=== PATIENT | female | born 1925 | race Caucasian/White ===

== ENCOUNTER 2017-04-25 00:16 | Inpatient (IN) | payer MEDICARE, BC ==
[~2017-04-25] VITALS: Ht 165.1 cm; Wt 59.0 kg
[~2017-04-25 00:16] MED LIST: ASPIRIN EC81 M1 PO; ASPIRIN EC81 MG; BUMEX 1 MG TAB1 MG PO; CARAFATE1 G PO; CARDURA1 MG PO; CARDURA2 MG PO; CIPRO500 MG PO; COMBIVENT RESPIM4 GM; CORDARONE200 MG PO; DIOVAN160 MG PO; DUONEB 2.5-0.5 M3 ML UPD; FERROUS SULFAT325 MG PO; FIORICET TABLET1 TAB PO; KLOR-CON 1010 MEQ; LANOXIN125 MCG PO; LASIX40 MG PO; LEVAQUIN500 MG PO; LEXAPRO20 MG PO; MAG-OX 400 MG400 MG PO; MUCINEX600 MG PO; NITRO-DUR0.4 MG TD; NORVASC5 MG PO; PLAVIX75 MG PO; PRILOSEC10 MG PO; PROTONIX40 MG PO; SPIRIVA18 MCG INH; STERAPRED 5MG 65 M1 PO; TENORMIN100 MG PO; TESSALON PERLE100 MG PO; XARELTO20 MG PO
[2017-04-25 02:41] LABS: APPEARANCE CLEAR (CLEAR); BASOPHILS 0.2 % (0-2); BILIRUBIN NEGATIVE (NEGATIVE); COLOR YELLOW (YELLOW); EOSINOPHILS 3.4 % (0-7); GLUCOSE NEGATIVE (NEGATIVE); HEMATOCRIT 34.8 % (36.0-48.0); HEMOGLOBIN 11.7 g/dL (12-16); IMMATURE GRANULOCYTES 0.2 % (0-5); KETONE NEGATIVE (NEGATIVE); LEUKOCYTE ESTERASE NEGATIVE (NEGATIVE); LYMPHOCYTES 13.6 % (15-50); MCH 31.3 pg (26.0-34.0); MCHC 33.6 g/dL (31.0-37.0); MEAN PLATELET VOLUME 9.4 fL (7.4-10.4); MONOCYTES 11.4 % (2-11); NEUTROPHILS 71.2 % (40-80); NITRITE NEGATIVE (NEGATIVE); PLATELET COUNT 225 10x3/uL (130-400); PROTEIN TRACE mg/dL (NEGATIVE); RBC 3.74 10x6/uL (4.00-5.40); RDW 13.1 % (11.5-14.5); SPECIFIC GRAVITY 1.005 (1.005-1.020); UROBILINOGEN NORMAL (NORMAL); WBC 6.2 10x3/uL (4.8-10.8)
[2017-04-25 02:49] LABS: ALBUMIN 4.2 g/dL (3.4-5.0); ANION GAP 10.8 mmol/L (8-16); BILIRUBIN - TOTAL 0.52 mg/dL (0.2-1.3); CALCIUM 9.8 mg/dL (8.5-10.1); CARBON DIOXIDE 33.2 mmol/L (21.0-32.0); CREATININE - SERUM 1.4 mg/dL (0.6-1.3)
[2017-04-25 02:53] LABS: BACTERIA FEW /hpf (NONE SEEN); EPITHELIAL CELLS RARE /hpf (0-5); HYALINE CAST RARE /lpf (NONE SEEN); RED CELLS - URINE 0-5 /hpf (0-5); WHITE CELLS - URINE RARE /hpf (0-5)
[2017-04-25 04:00] VITALS: BP 145/58
[2017-04-25 04:07] VITALS: BP 145/58; BMI 21.6
[2017-04-25] MEDS ORDERED: FUROSEMIDE40 MG PO (04:27)
[2017-04-25] MEDS ORDERED: COMBIVENT RESPIM4 GM INH (04:32)
[2017-04-25] MEDS ORDERED: PROAIR HFA8.5 GM INH (04:32)
[2017-04-25] MEDS ORDERED: ZOLOFT100 MG PO (04:33)
[2017-04-25] MEDS ORDERED: HYDROCODON-ACE1 EAC7 PO (04:38)
[2017-04-25] MEDS ORDERED: ZOFRAN8 MG PO (04:43)
[2017-04-25] MEDS ORDERED: CHERATUSSIN AC473 ML PO (04:44)
[2017-04-25] MEDS ORDERED: CATAPRES0.2 MG PO (04:46)
[2017-04-25] MEDS ORDERED: NORVASC5 MG PO (04:47)
[2017-04-25] MEDS ORDERED: CORTISPORIN OIN15 GM TOPICAL (04:49)
[2017-04-25 08:31] VITALS: BP 107/37
--- NOTE | 2017-04-25 12:04 | NUR ---
1140 Patient was admitted thru the ER from [facility], an assisted living facility. PCP - DR Marcano Feeder Tender- DR Espino [facility] Emergency contact - Leonila DuvalNukavebfj-[phone] DR Scherer had stated he may consider discharge later today. CM called Kash Martinez and spoke with Meghana. She is concerned as patient is 89 years of age and in assisted living not a [place] [facility] w/ [facility] care. Kash Martinez also may have difficulty arranging transportation. Contact phone number for Kash Martinez - [phone]. Will advise primary nurse.
[2017-04-25 12:14] VITALS: BP 176/69
--- NOTE | 2017-04-25 12:27 | NUR ---
PATIENT IN RIGHT LATERAL POSITION RESTING WITH EYES CLOSED. RESPIRATIONS EVEN AND UNLABORED. SIDE RAILS UP X2. BED IN LOW POSITION. CALL LIGHT IN REACH.
[2017-04-25 16:28] VITALS: BP 96/54
--- NOTE | 2017-04-25 19:00 | NUR ---
REC'D LYING IN BED AWAKE AND ALERT WITH FAMILY AT BEDSIDE. RESP EVEN AND UNLABORED WITH NO DISTRESS NOTED. HAS O2 IN USE VIA NC AT 2 L/M. PT HAS NOTED BRUISING TO FOREHEAD AND BOTH EYES AND A LACERATION TO LEFT SIDE OF FOREHEAD. NO C/O NOTED OR VOICED. ASSESSMENT COMPLETED. C/L IN REACH AT BEDSIDE.
[2017-04-25 20:00] VITALS: BP 169/62
[2017-04-26] VITALS: BP 150/53
--- NOTE | 2017-04-26 02:00 | NUR ---
PT IN BED WITH NO DISTRESS. RESPIRATIONS EVEN AND UNLABORED. SIDE RAILS X 2. BED LOW. CALL LIGHT IN REACH.
[2017-04-26 04:00] VITALS: BP 115/64
--- NOTE | 2017-04-26 07:00 | NUR ---
PT REC'D FROM [facility]. RESTING IN BED WITH FAMILY AT BEDSIDE. AAOX4. RATING CURRENT PAIN IN ENTIRE BODY 05/24. WILL ADMINISTERED PAIN MEDICATION IF ABLE TO. BRUISING TO FOREHEAD AND BILAT EYES. C/O FEELING DIZZY WHEN MOVING "TOO MUCH." REPOSITIONED UP IN BED WITH EXTRA PILLOWS. PIV TO R HAND FREE OF REDNESS AND SWELLING. SCANT AMOUNT OF BLOOD AROUND CATHETER. BED LOW, CALL LIGHT IN REACH, DENIES NEEDS. CPOC.
[2017-04-26 08:20] VITALS: BP 157/65
[2017-04-26 08:26] LABS: APPEARANCE CLEAR (CLEAR); BILIRUBIN NEGATIVE (NEGATIVE); COLOR YELLOW (YELLOW); GLUCOSE NEGATIVE (NEGATIVE); KETONE NEGATIVE (NEGATIVE); LEUKOCYTE ESTERASE NEGATIVE (NEGATIVE); NITRITE NEGATIVE (NEGATIVE); PROTEIN NEGATIVE (NEGATIVE); SPECIFIC GRAVITY 1.005 (1.005-1.020); UROBILINOGEN NORMAL (NORMAL)
[2017-04-26 08:27] LABS: BASOPHILS 0.3 % (0-2); EOSINOPHILS 3.3 % (0-7); HEMATOCRIT 32.8 % (36.0-48.0); LYMPHOCYTES 19.2 % (15-50); MCH 31.4 pg (26.0-34.0); MCHC 33.5 g/dL (31.0-37.0); MCV 93.7 fL (80.0-100.0); MEAN PLATELET VOLUME 9.9 fL (7.4-10.4); MONOCYTES 13.3 % (2-11); NEUTROPHILS 63.9 % (40-80); PLATELET COUNT 189 10x3/uL (130-400); RDW 13.4 % (11.5-14.5)
[2017-04-26 08:29] LABS: WBC 3.4 10x3/uL (4.8-10.8)
[2017-04-26 08:58] LABS: ALBUMIN 3.5 g/dL (3.4-5.0); ANION GAP 9.5 mmol/L (8-16); BILIRUBIN - TOTAL 0.52 mg/dL (0.2-1.3); CALCIUM 9.4 mg/dL (8.5-10.1); CARBON DIOXIDE 32.5 mmol/L (21.0-32.0); CREATININE - SERUM 1.1 mg/dL (0.6-1.3); PROTEIN - SERUM 6.6 g/dL (6.4-8.2)
--- NOTE | 2017-04-26 09:33 | NUR ---
MORNING MEDS PASSED AT THIS TIME. PRN NORCO ADMINISTERED PER PT COMPLAINTS OF 7/10 GENERALIZED PAIN. WILL REASSESS. ASSISTED ONTO BED HOLDEN. VOIDED SMALL AMOUNT OF CLEAR YELLOW URINE. SAMPLE COLLECTED USING CLEAN BED HOLDEN AND SENT TO LAB. BED LOW, CALL LIGHT IN REACH, DENIES NEEDS. CPOC.
--- NOTE | 2017-04-26 11:42 | NUR ---
AWAKE AND ALERT. ORIENTED X3. NO C/O AT THIS TIME. DENIES NEEDS. BRUISING NOTED TO FACE AND ABRASION TO FOREHEAD NOTED.
[2017-04-26 12:04] VITALS: BP 143/52
[2017-04-26 13:43] VITALS: Ht 165.1 cm; Wt 59.0 kg
--- NOTE | 2017-04-26 15:13 | NUR ---
SCHEDULED MEDS AND PRN NORCO ADMINISTERED PER JAN. PT RESTING IN BED WITH EYES CLOSED. TEGADERM TO PIV ON R HAND CHANGED DUE TO BLOOD AROUND SITE. BED LOW, CALL LIGHT IN REACH, DENIES NEEDS. CPOC.
[2017-04-26 15:57] VITALS: BP 132/51
--- NOTE | 2017-04-26 19:40 | NUR ---
RECIEVED SHIFT REPORT. PT IS LYING IN BED. ALERT AND ORIENTED AND ABLE TO VERBALIZE NEEDS. IV IS PATENT AND SALINE LOC AT THIS TIME. PT IS AMBULATORY WITH ASSISTANCE. O2 @ 3 PER NASAL CANNULA. PT STATES PAIN IS 5/10. NO NEEDS ARE VERBALIZED AT THIS TIME. WILL CONTINUE TO MONITOR. SIDE RAILS ARE UP X 2. BED IS IN LOWEST POSITION. BED ALARM IS ON FOR SAFETY. CALL LIGHT IS WITHIN REACH.
[2017-04-26 20:03] VITALS: BP 138/51
--- NOTE | 2017-04-26 21:51 | NUR ---
SHIFT ASSESSMENT COMPLETED. NIGHT MEDS GIVEN WITH NO PROBLEMS. SCHEDULED CATAPRES HELD AT THIS TIME DUE TO B/P=138/51. NO NEEDS ARE VOICED. WILL MONITOR. SIDE RAILS X 2. BED LOW. BED ALARM ON. CALL LIGHT IN REACH.
[2017-04-27] VITALS: BP 151/47
[2017-04-27 04:00] VITALS: BP 151/68
[2017-04-27 08:25] VITALS: BP 156/65
--- NOTE | 2017-04-27 08:45 | NUR ---
ASSESSMENT COMPLETE. SL TO R HAND. FURNITURE PACKER SHOWING SB WITH PACS 57 PER TECH. O2 3L NC IN USE. BRUISING NOTED TO BILAT EYES AND FOREHEAD. BED ALARM IN USE. DISORIENTED TO TIME AND SITUATION.
--- NOTE | 2017-04-27 13:32 | NUR ---
CM REASSESSMENT NOTE: PATIENT IS DISCHARGING TO IP REHAB AND FAMILY AWARE.
[2017-04-27 15:07] VITALS: BP 142/68
--- NOTE | 2017-04-27 16:25 | NUR ---
REPORT CALLED TO ANJEL CHENG RN ON REHAB.
--- NOTE | 2017-04-27 16:47 | NUR ---
SL D/C WITH CATHETER INTACT.
--- NOTE | 2017-04-27 17:30 | NUR ---
SL REMOVED. CATHETER TIP INTACT. KINDERGARTEN ASSISTANT REMOVED AND SENT BACK TO MONITOR STATION. DC'D TO REHAB VIA WITH BELONGING AND PORTABLE OXYGEN.
== END 2017-04-27 17:30 | DRG 89 ==
LOC: D.ER 00:16 → OBSVTIME 02:19 → D.MS 02:19
PROVIDERS: Emergency Medicine; ADMIT Family Medicine
PROC: 0HQ1XZZ Repair Face Skin, External Approach (ICD-10-PCS; principal; 2017-04-25)
DX: S06.0X0A Concussion without loss of consciousness, initial encounter (principal); E87.1 Hypo-osmolality and hyponatremia; W19.XXXA Unspecified fall, initial encounter; S01.81XA Laceration without foreign body of other part of head, initial encounter; I10 Essential (primary) hypertension; I48.91 Unspecified atrial fibrillation; F41.9 Anxiety disorder, unspecified; I12.9 Hypertensive chronic kidney disease with stage 1 through stage 4 chronic kidney disease, or unspecified chronic kidney disease; N18.3 Chronic kidney disease, stage 3 (moderate); D64.9 Anemia, unspecified; E87.6 Hypokalemia; J44.9 Chronic obstructive pulmonary disease, unspecified; Z86.73 Personal history of transient ischemic attack (TIA), and cerebral infarction without residual deficits

== ENCOUNTER 2017-04-27 16:44 | Inpatient (IN) | payer MEDICARE, BC ==
[~2017-04-27] VITALS: Ht 165.1 cm; Wt 53.5 kg
[~2017-04-27 16:44] MED LIST changes: +CATAPRES0.2 MG PO; +CHERATUSSIN AC473 ML PO; +COMBIVENT RESPIM4 GM INH; +CORTISPORIN OIN15 GM TOPICAL; +FUROSEMIDE40 MG PO; +HYDROCODON-ACE1 EAC7 PO; +PROAIR HFA8.5 GM INH; +ZOFRAN8 MG PO; +ZOLOFT100 MG PO
--- NOTE | 2017-04-27 17:50 | NUR ---
RECIEVED ON FLOOR TO ROOM 1113B/WC.ORIENTED TO ROOM AND SURROUNDINGS.CL IN REACH.FAMILY AT BEDSIDE.
--- NOTE | 2017-04-27 19:29 | NUR ---
PT RESTING IN BED WITH EYES OPEN. ALERT AND ORIENTED X 3. PT DENIES ANY ACUTE PAIN OR DISCOMFORT. VSS. O2 IS ON @ 2LPM PER NC. NO SOB NOTED. PT IS EATING A BURGER FROM [employer] AT THIS TIME. SR'S ARE UP X 3 IN BED. CALL LIGHT AND BEDSIDE TABLE ARE WITHIN EASY REACH.
--- NOTE | 2017-04-27 22:07 | NUR ---
PT RESTING IN BED WITH EYES OPEN. ASSISTED TO THE BATHROOM WITH MIN ASSIST FOR BALANCE ONLY. PT VOIDED WITHOUT DIFFICULTY. ASSISTED BACK TO BED.
[2017-04-27 22:25] VITALS: BP 155/61
--- NOTE | 2017-04-27 23:10 | NUR ---
PT. IN BED WITH HOB UP FOR COMFORT. EYES CLOSED AND RESP. EVEN BUT AWAKENS EASILY UPON ENTERING ROOM. PT. SEEMS TO BE MORE CONCERNED WITH HER ROOMMATE THEN ANYTHING ELSE. REASSURED PT. THAT HER ROOMMATE WAS OK. PT. DENIES ANY NEEDS AND HAS HER CALL LIGHT LIGHT WITHIN REACH.
--- NOTE | 2017-04-27 23:25 | NUR ---
PT RESTING IN BED WITH EYES OPEN. VERY RESTLESS. RINGING CALL LIGHT FREQUENTLY FOR VARIOUS REASONS. ENCOURAGED TO TRY AND GET SOME SLEEP.
--- NOTE | 2017-04-28 02:07 | NUR ---
PT ASSISTED TO THE BATHROOM WITH MIN ASSIST. VOIDED WITHOUT DIFFICULTY.
[2017-04-28 05:25] VITALS: BP 155/61; BMI 19.7
--- NOTE | 2017-04-28 05:56 | NUR ---
PT ASSISTED UP TO THE BATHROOM WITH MIN ASSIST. PT NOT DRESSED, DUE TO OT EVAL DUE THIS AM.
[2017-04-28 06:58] LABS: ALBUMIN 3.5 g/dL (3.4-5.0); ANION GAP 12.9 mmol/L (8-16); BILIRUBIN - TOTAL 0.58 mg/dL (0.2-1.3); CALCIUM 9.3 mg/dL (8.5-10.1); CARBON DIOXIDE 28.2 mmol/L (21.0-32.0); POTASSIUM - SERUM 4.1 mmol/L (3.5-5.1)
--- NOTE | 2017-04-28 07:30 | NUR ---
LYING IN BED WITH CL IN REACH.
--- NOTE | 2017-04-28 08:26 | NUR ---
PATIENT SITTING UP IN BED TO EAT BREAKFAST. ALERT/ORIENT TO SLEF AND PLACE ONLY. CALL LIGHT WITHIN REACH. BED ALARM ON. VOICES NO NEEDS AT THIS TIME
--- NOTE | 2017-04-28 08:45 | NUR ---
PRN NORCO GIVEN FOR HEAD AND NECK PAIN.
[2017-04-28 09:04] VITALS: BP 191/80
--- NOTE | 2017-04-28 10:19 | NUR ---
PRN COMBIVENT INHALER GIVEN FOR SOB. PATIENT BEING MOVED TO 1111B DUE TO PATIENT WANTING THE ROOM COLD AND ROOM MATE WANTING THE ROOM WARM. PATIENT TALKS CONTINULY AND KEPT ROOM MATE UP LAST NIGHT.
[2017-04-28 10:22] VITALS: Ht 165.1 cm; Wt 53.5 kg
--- NOTE | 2017-04-28 14:07 | NUR ---
PATIENTS DAUGHTERS IN. GAVE THIS NURSE A MED LIST FROM [facility]. THIS NURSE ASKED DAUGHTER ABOUT MICROBID FOR UTI. DAUGHTER STATED SHE HAD HAD ALL SEVEN DOSES OF MICROBID AND THAT THE [facility] HAD RUN ANOTHER URINE CULTURE AND PATIENT WAS FREE OF UTI.
--- NOTE | 2017-04-28 17:39 | NUR ---
DR. MACK INTO SEE PATIENT.
--- NOTE | 2017-04-28 19:45 | NUR ---
SITTING UP ON BEDSIDE, RAMBLING LOUDLY TO ROOMMATE AND CABINET MOUNTER. PATIENT VERY DISORIENTED AND CONFUSED. ALTERNATELY ADMITS SHE IS IN THE HOSPITAL, AND THEN WILL ASK WHY STAFF MEMBERS ARE IN HER HOUSE. VERY ATTENTION SEEKING AND WILL NOT ALLOW CABINET MOUNTER TO FINISH WITH HER. WANTS CABINET MOUNTER TO STAY AHD CHAT. EXPLAINED THAT CABINET MOUNTER HAS OTHER TASKS TO ACCOMPLISH AND CANNOT STOP TO TALK (CABINET MOUNTER HS BEEN TRYING TO DISENGAGE FROM PATIENT AND STATES THIS PATIENT HAS BEEN DISRUPTIVE AND ATTENTION-SEEKING ALL AFTERNOON).
[2017-04-28 20:15] VITALS: BP 141/55
--- NOTE | 2017-04-28 20:30 | NUR ---
PATIENT IN BR WITH FUR GRADER ASSIST. KEEPS CALLING FUR GRADER BACK TO TALK WITH HER WHILE ON COMMODE, AND ADMITS TO NOT BEING FINISHED WITH TOILETING. THIS HAS DRAGGED ON FOR 15 MINUTES.
--- NOTE | 2017-04-28 22:30 | NUR ---
PATIENT CONTINUES TO BE DISRUPTIVE TO HER ROOMMATE WITH CONSTANT TALKING AND LACK OF COOPERATION WITH STAFF. WAS ABLE TO COMPLETE ASSESSMENT AND HS MEDS. BUT NOT WITHOUT RESISTANCE. PATIENT HAS DEMONSTRATED SLAPPING STAFF, MYSELF INCLUDED ON THE LEGS AND ARMS TO EMPHASIZE HER COMMENTS. TOLD HER THAT THIS ACTION WILL NOT BE UNDERSTOOD OR APPRECIATED BY OTHER STAFF MEMBERS DUE TO THE SHARPNESS AND CONTEXT IN WHICH SHE OFTEN DOES IT. TOLD HER IT IS NOT APPROPRIATE AND SHE WILL HAVE TO REFRAIN FROM DONG IT.
--- NOTE | 2017-04-29 00:30 | NUR ---
WHEN I SASHA DRAPE TO PROVIDE PRIVACY FOR PATIENT'S ROOMMATE FOR ASSESMENT. PATIENT BEGAN TO THREATEN ME IF I DID NOT DRAW BACK TO DRAPE. TOLD PATIENT I WAS DOING IT FOR HER ROOMMATES PRIVACY THAT IT WOULD ONLY LAST 30 OR SO MINUTES, AND WHE SHE PERSEVERATED I TOLD HER THAT FRANKLY HER ROOMMATE'S BUSINESS WAS PRIVATE AND NOT OF HER CONCERN. ROOMMATE IS ROLLING HER EYES AND INTIMATES SHE IS A BIT UPSET WITH MRS. HASSAN'S BEHAVIOR TONIGHT. TOLD HER WE WILL HAVE THE PROBLEM REMEDIED TOMORROW AT THE LATEST. AFTER ASSESSMENT MRS. JONES SAID SHE WOULD ALLOW DRAPE TO BE OPEN. MEANWHILE MRS. HASSAN HAD BEEN TALKING ON PHONE, OSTENSIBLY TO FAMILY, OR SO I THOUGHT UNTIL I HER THE "[id number]" ALERT TONE AND REALIZED SHE WAS TALKING TO NO ONE REAL. TOLD ME TO, "GET OUT OF HERE [ROOM 1111], OR YOU'LL BE IN TROUBLE!" REMINDED HER SHE IS IN THE HOSPITAL AND DOES NOT DICTATE NURSING ROUTINE.
--- NOTE | 2017-04-29 01:20 | NUR ---
ASSISTED PATIENT UP TO BR. ON RETURN SHE WAS VERY APOLOGETIC FOR HER EARLIER BEHAVIOR. SEEMS SHE IS SLIGHTLY IMPROVED, COGNITIVELY SPEAKING. WE'LL SEE.
--- NOTE | 2017-04-29 02:40 | NUR ---
RESTING QUIETLY ON RIGHT SIDE. NO DISTRESS NOTED.
--- NOTE | 2017-04-29 04:50 | NUR ---
REMAINS ON RIGHT SIDE, RESTING QUIETLY. NO CURRENT DISTRESS NOTED.
--- NOTE | 2017-04-29 06:55 | NUR ---
AWOKE PATIENT AND GAVE HER SCHEDULED PROTONIX 40MG PO. PATIENT SLEEPY. MORE COOPERATIVE THAN LAST NIGHT.
--- NOTE | 2017-04-29 07:15 | NUR ---
Pt lying in bed eyes closed resting
[2017-04-29 08:21] VITALS: BP 153/64
--- NOTE | 2017-04-29 09:40 | NUR ---
Pt alert and oriented x4 pleasant affect sitting up in bed visting friends
--- NOTE | 2017-04-29 11:30 | NUR ---
PT SITTING UP IN BED VISITING WITH FAMILY DENIES ANY PAIN
--- NOTE | 2017-04-29 12:14 | NUR ---
PT FAMILY REQUESTED LUNESTA 3MG QHS (CURRENT MED) DR. MACK AUTHORIZED AND VERIFIED PHONE ORDER.
--- NOTE | 2017-04-29 14:00 | NUR ---
PT LYING IN BED RIGHT SIDE IN POSITION C/O LOWER BACK PAIN AND NAUSEA 8/10 WILL GIVE PAIN MEDS.
--- NOTE | 2017-04-29 15:48 | NUR ---
PT IN THERAPY
--- NOTE | 2017-04-29 16:34 | RHP ---
PATIENT: REBEL HASSAN MEDICAL RECORD: [id number] ACCOUNT: [id number] LOCATION:[facility] Ana1111 : [birth year] ADMISSION DATE: 04/27/17 REHABILITATION HISTORY AND PHYSICAL EXAMINATION POST ADMISSION PHYSICIAN EXAMINATION Rehabilitation History and Physical Examination and Post-admission Physical Examination DATE OF ADMISSION: 04/27/2017 ADMITTING DIAGNOSIS: Closed head injury with concussion. HISTORY OF PRESENT ILLNESS: An 89-year-old white female patient, admitted to the hospital after closed head injury with concussion. She is currently in inpatient rehab for further care. The patient was living at [facility] in an apartment in assisted living where she was moderate assist with her mobility and independent of her ADLs. She presented to the ED after having a fall and hitting her head, found to have a closed head injury with suspected concussion with vomiting. CT of her head showed a left frontal scalp hematoma, chronic mild small vessel ischemic changes in the periventricular white matter, but no subdural hematoma. She currently is having increased amount of dizziness and only able to ambulate a short distance with physical therapy assistance and having dizziness with loss of balance, currently in inpatient rehab for further care. The patient plans to return to her apartment at [facility] if her prior level of functioning are better. COMORBIDITIES: Falls, hypoxia, dyspnea, shortness of breath, hyper and hypotension, fluid overload, impaired skin integrity, risk for aspiration, anemia, history of stroke with weakness, dizziness, hard of hearing with hearing aids, hypertension, atrial fibrillation, angina, claudication, COPD, depression and anxiety. PAST MEDICAL HISTORY: CVA, generalized weakness, vertigo, detached retina of left eye, hypertension, atrial fibrillation, angina, claudication, COPD, oxygen dependent, depression and anxiety. PAST SURGICAL HISTORY: Facial reconstruction. ALLERGIES: DECONGESTANTS. MEDICATIONS: Zoloft 100 mg a day, nitroglycerin 0.4 mg sublingual as needed, Lasix 40 mg a day, iron 325 mg a day, Lexapro 20 mg a day, Protonix 40 mg a day, valsartan 160 mg b.i.d., potassium 10 mEq b.i.d., magnesium oxide 400 mg b.i.d., amiodarone 200 b.i.d., Zofran 8 mg p.r.n., albuterol updrafts as needed, Conrad as needed, clonidine as needed and MiraLax as needed. SOCIAL HISTORY AND HABITS: Nonsmoker and nondrinker. FAMILY HISTORY: Parent with cardiovascular disease and cancer. Has a child with a neurological disorder and cardiovascular disease. REVIEW OF SYSTEMS: GENERAL: Positive for weakness. CENTRAL NERVOUS SYSTEM: Positive for headache and dizziness. HISTORY AND PHYSICAL [id number] REBEL HASSAN CARDIOVASCULAR: No chest pain or palpitations. INFECTIOUS DISEASE: No fever or chills. GASTROINTESTINAL: Occasional nausea and vomiting. No abdominal pain or diarrhea. GENITOURINARY: No dysuria. HEME: No GI bleeding. SKIN: Does have some bruising and lacerations to her head. PULMONARY: No cough or shortness of breath. MUSCULOSKELETAL: Positive for arthritis. LABORATORY DATA: Sodium 132, potassium 4.1, BUN 10 and creatinine 1.0. AST 44 and ALT 48. ASSESSMENT: An 89-year-old white female patient admitted to rehab with a working diagnosis of closed head injury with concussion. The patient has potential to make improvement and we have instituted the following multiple disciplinary therapies including, but not limited to physical, occupational, respiratory, speech, nutritional services, prosthetics and orthotics. Given her complex condition and risk for more complications, rehabilitation services cannot be provided at a lower level of care such as a nursing home facility. PLAN: 1. Admit to [facility] rehab for intensive inpatient therapy to include the following disciplines: A. Physical therapy to improve gait, all transfer skills and bed mobility to modified independent level. B. Occupational therapy to improve activities of daily living to a modified independent level. C. Case management to assist with discharge planning and placement options. D. Nutrition to assist with nutritional needs. E. Rehabilitation nursing to assist in monitoring the patient's underlying medical conditions and assist with any type of bowel or bladder management. 2. The patient's current medication and medical care during care will be continued. 3. The patient will be placed on standard fall precautions. We will monitor her neuro status and follow up with care team next week. TRANSINT:[id number] Voice Confirmation ID: [id number] DOCUMENT ID: [id number] BREANNA notes whether there has been none or any medical/functional change since admission: - No Change. BREANNA attests patient continues to be appropriate for IRF: - Continues to be appropriate for IRF. HISTORY AND PHYSICAL [id number] REBEL HASSANKIMBERLY YAP at 1634 CC: [id number] DICTATION DATE: 04/28/171758 ELECTRON GUN ASSEMBLER: 04/28/17 2251 ADM IN [place] [id number] [place] [id number]
--- NOTE | 2017-04-29 17:22 | NUR ---
PT SITTING UP IN BED WATCHING TV, DENIES ANY PAIN OR NAUSEA
[2017-04-29 19:00] VITALS: BP 95/53
--- NOTE | 2017-04-29 19:00 | NUR ---
IN BED, AWAKE. DENIES NEEDS.
--- NOTE | 2017-04-29 21:25 | NUR ---
ASSISTED PATIENT UP TO BR TO URINATE. CHANGED HER BRIEF, BUT ONLY SAW 2 SMALL URINE SPOTS ABOUT 1" IN DIAMETER. PATIENT SEEMED TO THINK HER BRIEF WAS SATURATED. ASSURED HER THAT IT HAD NOT BEEN. ON RETURN TO BED, ASSESSMENT AND HS MEDS WERE COMPLETED. HELD SCHEDULED DIOVAN 160MG FOR LOW BP OF 96/53. PATIENT WAS STARTED TONIGHT ON NIGHTLY DOSE OF LUNESTA 3MG PER NEW ORDER. SR UP X3. BHAVIN ALARM IS ARMED. WATER AND CALL LIGHT ARE IN REACH.
--- NOTE | 2017-04-29 22:25 | NUR ---
RESTING QUIETLY, EYES CLOSED.
--- NOTE | 2017-04-30 02:00 | NUR ---
RESTING IN BED, EYES CLOSED. APPEARS COMFORTABLE.
--- NOTE | 2017-04-30 04:45 | NUR ---
IN BED, EYES CLOSED. RESPIRING QUIETLY.
--- NOTE | 2017-04-30 06:45 | NUR ---
IN BED, RESTING QUIETLY. WAS ASSISTED UP EARLY IN THE HOUR TO BR COMMODE AND BACK TO BED.
--- NOTE | 2017-04-30 07:03 | NUR ---
RESTING QUIETLY IN BED. EYES CLOSED. CALL LIGHT IN REACH
[2017-04-30 08:00] VITALS: BP 141/44
--- NOTE | 2017-04-30 09:18 | NUR ---
PATIENT IS PLEASANTLY CONFUSED. BHAVIN BED ALARM ON. CALL LIGHT WITHIN REACH. VOICES NO NEEDS AT THIS TIME. OXYGEN ON AT 3.5L PER N/C PO 100%. REDNESS FROM OLD BRUSING AROUND EYES. LEFT FOREHEAD HAS A SMALL INCISION OVER IT WITH TWO SURGICAL TRAN. PATIENT IS VERY [place].
--- NOTE | 2017-04-30 10:30 | NUR ---
PATIENT LYING IN BED. C/O NAUSEA. PRN ZOFRAN GIVEN
--- NOTE | 2017-04-30 13:49 | NUR ---
PATIENT REFUSED SHOWER FROM THIS NURSE AND OCCUPATIONAL THERAPIST. EXPLAINED TO PATIENT SHOWER SCHEDULE
--- NOTE | 2017-04-30 15:25 | NUR ---
PATIENT RESTING IN BED AFTER THERAPY. CALL LIGHT WITHIN REACH.
--- NOTE | 2017-04-30 16:14 | NUR ---
PATIENT ADMITTES TO REHAB FROM ACUTE FLOOR. DR. YATES IS PCP AND DR. ROBLERO IS HER ORDER RUNNER. SHE LIVES AT [facility]. PLANS ARE FOR PATIENT TO RETURN THERE AT TIME OF DISCHARGE. WILL CONTINUE TO FOLLOW WITH PATIENT
--- NOTE | 2017-04-30 18:42 | NUR ---
PRN ZOFRAN GIVEN FOR NAUSEA
--- NOTE | 2017-04-30 19:00 | NUR ---
IN BED AWAKE. DENIES NEEDS.
[2017-04-30 20:16] VITALS: BP 141/53
--- NOTE | 2017-04-30 21:25 | NUR ---
ASSISTED PATIENT UP TO BR AND THEN BACK TO BED. ON RETURN, ASSESSMENT AND HS MEDS WERE COMPLETED. PATIENT DENIES CURRENT NEEDS.
--- NOTE | 2017-04-30 22:05 | NUR ---
REMAINS AWAKE, IN BED, READING THE PAPER. REMINDED HER SHE ALREADY TOOK HER LUNESTA FOR SLEEP AND SUGGESTED SHE TRY TO DO JUST THAT AND NOT WASTE THE INTENDED EFFECT OF HER SLEEPING MEDICATION.
--- NOTE | 2017-05-01 00:10 | NUR ---
ASSISTED PATIENT UP TO BR TO URINATE. CHANGED HER BRIEF AND SUPPLEMENTAL SANTOS PAD DUE TO INCONTINENCE. CHANGED PJ BOTTOMS DUE TO ODOR OF DRY URINE. PATIENT REFUSED INITIALLY, BUT FINALLY AGREED TO CHANGE, BUT WOULD NOT CHANGE HER PJ TOP.
--- NOTE | 2017-05-01 02:00 | NUR ---
RESTING IN BED ON RIGHT SIDE. NO APPARENT DISCOMFORT.
--- NOTE | 2017-05-01 06:15 | NUR ---
IN BED, AWAKE. CURRENTLY RECEIVING MDI TREATMENT BY R/T.
--- NOTE | 2017-05-01 08:00 | NUR ---
SITTING UP IN BED EATING BREAKFAST.DENIES NEEDS.CL IN REACH.
[2017-05-01 08:31] LABS: BASOPHILS 0.3 % (0-2); EOSINOPHILS 4.4 % (0-7); HEMATOCRIT 33.2 % (36.0-48.0); IMMATURE GRANULOCYTES 0.3 % (0-5); LYMPHOCYTES 25.4 % (15-50); MCH 31.3 pg (26.0-34.0); MCHC 33.1 g/dL (31.0-37.0); MCV 94.3 fL (80.0-100.0); MEAN PLATELET VOLUME 9.6 fL (7.4-10.4); MONOCYTES 13.4 % (2-11); NEUTROPHILS 56.2 % (40-80); PLATELET COUNT 213 10x3/uL (130-400); RBC 3.52 10x6/uL (4.00-5.40); RDW 13.2 % (11.5-14.5); WBC 3.7 10x3/uL (4.8-10.8)
[2017-05-01 08:39] LABS: ANION GAP 10.4 mmol/L (8-16); CALCIUM 9.4 mg/dL (8.5-10.1); CARBON DIOXIDE 32.2 mmol/L (21.0-32.0); CREATININE - SERUM 1.3 mg/dL (0.6-1.3); POTASSIUM - SERUM 3.6 mmol/L (3.5-5.1)
--- NOTE | 2017-05-01 08:52 | NUR ---
PT RESTING IN BED WITH EYES OPEN CALL LIGHT IN REACH NO PROBLEMS WILL MONITER
--- NOTE | 2017-05-01 16:12 | NUR ---
PT RESTING IN BED WITH EYES OPEN CALL LIGHT IN REACH NO PROBLEMS WILL MONITER
--- NOTE | 2017-05-01 19:30 | NUR ---
ASSISTED PT TO BATHROOM USING WALKER, PT DOES NEED ASSISTANCE WITH TRUNK CONTORL WHEN INITIATING THE TOILET PROCESS.
[2017-05-01 20:06] VITALS: BP 143/58
--- NOTE | 2017-05-02 01:10 | NUR ---
PT RESTING QUIELTY, NO S/S OF ACUTE DISTRESS.
--- NOTE | 2017-05-02 04:22 | NUR ---
PT RESTING QUIELTY, NO S/S OF ACUTE DISTRESS, RESPIRATIONS REGULAR NAD UNLABORED.
[2017-05-02 08:02] VITALS: BP 146/55
--- NOTE | 2017-05-02 09:17 | NUR ---
SITTING UP IN BED;QUIET.CL IN REACH.
--- NOTE | 2017-05-02 11:20 | NUR ---
PT RESTING IN BED WITH EYES OPEN CALL LIGHT IN REACH WILL MONITER
--- NOTE | 2017-05-02 16:03 | NUR ---
PT RESTING IN BED WITH EYES OPEN CALL LIGHT IN REACH NO PROBLEMS WILL MONITER
--- NOTE | 2017-05-02 19:45 | NUR ---
ASSISTED PT TO BATHROOM, PER WALKER, PT NEEDS ASSISTANCE STEERING WALKER. PT DISORIENTED TO TIME OF YEAR. TRAN INTACT WELL APPROXIMATED ON FOREHEAD, PT FACIAL BRUSING APPEARS TO BE IN HEALING STAGES. PT LOOKED IN MIRROR AND STATED SHE WASN'T SURE WHAT HAPPENED.
[2017-05-02 20:17] VITALS: BP 176/67
--- NOTE | 2017-05-03 00:15 | NUR ---
PT UP TO BATHROOM, ENCOURAGED PT TO BE QUIET TO ALLOW ROOMMATE TO SLEEP/REST. PT TALKED IN LOUDER VOICE, PT IS POOR HISTORIAN. PT CITED EARLIER EVENT REGARDING ROOMMATE, THAT WAS DIFFERENT THAN PERONSAL OBSERVATION.
--- NOTE | 2017-05-03 02:35 | NUR ---
PT AWAKE, TRYING TO CALL DAUGHTER REGARDING CHILDREN. PT TALKS CONTINOUSLY, UNWARE OF SURROUNDINGS OR HAS RATIONAL REASONING PROCESS. PT INSISTS HER ROOM MATE SHOULD BE AWAKE.
--- NOTE | 2017-05-03 07:12 | NUR ---
RESTING QUIETLY IN BED CALL LIGHT IN REACH
[2017-05-03 08:30] VITALS: BP 160/63
--- NOTE | 2017-05-03 09:05 | NUR ---
PT AM MEDS ADMINISTERED, PT DENIES NEEDS. WCTM.
--- NOTE | 2017-05-03 12:15 | NUR ---
PT EATING LUNCH, DENIES NEEDS.
--- NOTE | 2017-05-03 15:25 | NUR ---
PT RESTING IN BED, FAMILY AT BEDSIDE. WCTM.
[2017-05-03 19:00] VITALS: BP 196/73
--- NOTE | 2017-05-03 20:30 | NUR ---
PRODUCTION EXPEDITER REPORT PT BP IS 196/73 ON LEFT ARM, RECHECK BP IS 179/61 ON RIGHT ARM. REPORT IT TO CHARGE NURSE, AND BP MED GIVEN.
[2017-05-03 22:53] VITALS: BP 179/61
--- NOTE | 2017-05-03 23:49 | NUR ---
PT STATE IT HAS BEEN OVER 3 DAYS NO BM. MIRALAX PRN WITH PRUNE JUICE GIVEN.
--- NOTE | 2017-05-04 02:30 | NUR ---
REST QUIETLY IN BED, EYE CLOSE, BED LOW, CALL LIGHT WITHIN REACH.
--- NOTE | 2017-05-04 02:45 | NUR ---
PT ALARM INTERMITTENTLY SOUNDING, PT SITTING ON SIDE OF BED, CONFUSED TO LOCATION, TALKING. ASSISTED PT TO BATHROOM VIA WALKER, PT NEEDS HANDS ON GUIDEANCE WITH MOVING AND MANIPULATING THE WALKER, GATE UNSTEADY. BRIEF CHANGED MAX ASSIST. PT FRIENDLY AND SMILES EASILY, PT IS VERY CONVERSIVE. PT REQUESTED TO GO LIE DOWN AGAIN.
--- NOTE | 2017-05-04 05:10 | NUR ---
RESPIRATIONS APPEAR LABORED AND TACHY, EYES CLOSED, APPEARS TO BE SLEEPING.
[2017-05-04 08:00] VITALS: BP 103/40
--- NOTE | 2017-05-04 08:17 | NUR ---
PT UP EATING BREAKFAST, DENIES NEEDS.
--- NOTE | 2017-05-04 11:53 | NUR ---
PT OUT IN LOBBY VIA WC WITH FAMILY.
--- NOTE | 2017-05-04 19:20 | NUR ---
ASSISTED PATIENT UP TO BR TO URINATE, AND THEN BACK TO BED.
--- NOTE | 2017-05-04 19:29 | NUR ---
PT ASSISTED TO BR AND IS NOW BACK IN BED, DENIES NEEDS.
[2017-05-04 20:00] VITALS: BP 126/65
--- NOTE | 2017-05-04 21:30 | NUR ---
ASSISTED PATIENT UP TO BR AND BACK TO BED. DENIES NEEDS.
[2017-05-04 22:30] VITALS: BP 126/65
--- NOTE | 2017-05-04 22:30 | NUR ---
ASSESSMENT AND HS MED COMPLETE. DENIES NEEDS.
--- NOTE | 2017-05-05 00:10 | NUR ---
RESTING IN BED, EYES CLOSED.
--- NOTE | 2017-05-05 02:10 | NUR ---
RESTING QUIETLY, EYES CLOSED.
--- NOTE | 2017-05-05 04:25 | NUR ---
ASSISTED PATIENT UP TO BR TO URINATE AND CHANGE BRIEF AFTER INCONTINENCE WHILE ASLEEP. THEN RETURNED HER TO BED. DENIES FURTHER NEEDS.
--- NOTE | 2017-05-05 06:30 | NUR ---
RESTING QUIETLY IN BED, EYES CLOSED.
--- NOTE | 2017-05-05 08:00 | NUR ---
PATIENT ALERT/ORIENT TO SELF AND PLACE ONLY. VERY [place]. OXYGEN ON AT 3.5L PER N/C. CALL LIGHT WITHIN REACH. BED/BHAVIN ALARM ON. PATIENT DOES NOT ALWAYS USE CALL LIGHT FOR NEEDS.
[2017-05-05 09:11] VITALS: BP 156/57
--- NOTE | 2017-05-05 10:39 | NUR ---
PATIENT HELPED INTO BATHROOM. INCONT OF URINE, WEARING BREIFS. MOD ASST FROM BED TO WHEELCHAIR AND WHEELCHAIR ONTO TOILET. NEEDS HELP WITH SANTOS CARE.
--- NOTE | 2017-05-05 12:07 | NUR ---
PATIENT SITTING UP IN WHEELCHAIR FOR LUNCH. VOICES NO NEEDS AT THIS TIME. CALL LIGHT WITHIN REACH.
--- NOTE | 2017-05-05 13:30 | NUR ---
IN BED.CL IN REACH.
--- NOTE | 2017-05-05 15:21 | NUR ---
URINE COLLECTED AND SENT UP TO LAB
[2017-05-05 15:56] LABS: APPEARANCE CLEAR (CLEAR); BILIRUBIN NEGATIVE (NEGATIVE); COLOR YELLOW (YELLOW); GLUCOSE NEGATIVE (NEGATIVE); KETONE NEGATIVE (NEGATIVE); LEUKOCYTE ESTERASE NEGATIVE (NEGATIVE); NITRITE NEGATIVE (NEGATIVE); PROTEIN NEGATIVE (NEGATIVE); UROBILINOGEN NORMAL (NORMAL)
--- NOTE | 2017-05-05 19:20 | NUR ---
ASSISTED PATIENT UP TO BR TO URINATE AND TO CHANGE BRIEF AND POISE PAD DUE TO INCONTINENCE. THEN RETURNED HER TO BED.
[2017-05-05 22:15] VITALS: BP 198/71
--- NOTE | 2017-05-05 22:15 | NUR ---
ASSESSMENT AND HS MEDS COMPLETE. ALSO GAVE PATIENT NORCO 5/325 X1 TAB PO FOR PAIN LEVEL OF 5/10 IN HER BACK, WITH GENERAL BODY ACHES.
--- NOTE | 2017-05-06 00:30 | NUR ---
RESTING QUEITLY IN BED, EYES CLOSED.
--- NOTE | 2017-05-06 01:08 | NUR ---
PT UP TO BR VIA WC WITH ASSITANCE, PT TO COMMODE, VOIDED BY SELF WITH NO DIFFICULTY, CLEAN PAIR OF ADULT GARMENT PLACED ON, PT BACK TO BED, REQUESTED AND SERVED FRESH H20, DENIES FURTHER NEEDS, BED INLOW POSITION, SIDE RAILS X 2, CALL LIGHT IN REACH, BED ALARM ON AND WORKING PROPERLY
--- NOTE | 2017-05-06 02:40 | NUR ---
IN BED, EYES CLOSED. NO EVIDENT DISTRESS.
--- NOTE | 2017-05-06 06:25 | NUR ---
GAVE PATIENT SCHEDULED PO PROTONIX. PATIENT DRESSED EARLIER @ 0530 WHEN SHE WAS UP TO BR COMMODE.
[2017-05-06 09:11] VITALS: BP 147/51
--- NOTE | 2017-05-06 13:01 | NUR ---
Nutrition Follow Up: Pt reported that her appetite is great. She is eating 69% meal avg on a regular diet. +BM 05/01/17. Meds and labs reviewed. No new wt to assess. Rec continue current diet. RD will continue to monitor pt progress.
--- NOTE | 2017-05-06 13:14 | NUR ---
PT RESTING IN BED EATING BREAKFAST TOLERATING WELL WILL MONITER
--- NOTE | 2017-05-06 15:23 | NUR ---
SPOKE WITH DAUGHTER EUNICE AND SHE WOULD LIKE FOR HER MOTHER TO DISCHARGE ON 05/10/17. SPOKE WITH THERAPY AND INFORMED THEM OF DAUGHTER REQUEST. WILL CONTINUE TO FOLLOW WITH PATIENT
--- NOTE | 2017-05-06 18:00 | NUR ---
IN BED CL IN REACH.
--- NOTE | 2017-05-06 18:10 | NUR ---
PT RESTING IN BED WITH EYES OPEN CALL LIGHT IN REACH NO PROBLEMS WILL MONITER
--- NOTE | 2017-05-06 18:11 | NUR ---
PT RESTING IN BED WITH EYES OPEN CALL LIGHT IN REACH NO PROBLES WILL MONITER
--- NOTE | 2017-05-06 18:50 | NUR ---
PATIENT SITTING UP ON BEDSIDE AFTER DOMESTIC TECHNICIAN ASSIST UP TO BR AND BACK TO BED.
[2017-05-06 20:50] VITALS: BP 131/71
--- NOTE | 2017-05-06 20:50 | NUR ---
ASSESSMENT AND HS MEDS COMPLETE. PATIENT DENIES NEEDS. CONTINUES ON O2 PER N/C @ 3.5L FLOW. SR UP X3 WITH BHAVIN BED ALARM ARMED. WATER AND CALL LIGHT IN REACH.
--- NOTE | 2017-05-06 22:00 | NUR ---
IN BED, DROWSY. TALKING SOFTLY OUT LOUD TO NO ONE IN PARTICULAR.
--- NOTE | 2017-05-06 23:45 | NUR ---
ASKED FOR HELP FINDING A COUGH DROP AT HER BEDSIDE.
--- NOTE | 2017-05-07 02:10 | NUR ---
ASSISTED PATIENT UP TO BR COMMODE TO URINATE AND THEN CHANGE PULL-UP AND POISE PAD. THEN RETURNED HER TO BED.
--- NOTE | 2017-05-07 04:50 | NUR ---
REMAINS IN BED. REQUESTED AND WAS GIVEN FRESH ICE WATER. DENIES FURTHER NEEDS AT THIS TIME.
[2017-05-07 07:06] LABS: BASOPHILS 0.2 % (0-2); EOSINOPHILS 1.1 % (0-7); HEMATOCRIT 31.1 % (36.0-48.0); HEMOGLOBIN 10.6 g/dL (12-16); IMMATURE GRANULOCYTES 0.2 % (0-5); LYMPHOCYTES 12.4 % (15-50); MCH 32.5 pg (26.0-34.0); MCHC 34.1 g/dL (31.0-37.0); MCV 95.4 fL (80.0-100.0); MEAN PLATELET VOLUME 9.6 fL (7.4-10.4); MONOCYTES 11.6 % (2-11); NEUTROPHILS 74.5 % (40-80); PLATELET COUNT 202 10x3/uL (130-400); RBC 3.26 10x6/uL (4.00-5.40); RDW 13.1 % (11.5-14.5); WBC 6.1 10x3/uL (4.8-10.8)
[2017-05-07 07:10] LABS: ANION GAP 8.5 mmol/L (8-16); CALCIUM 9.1 mg/dL (8.5-10.1); CARBON DIOXIDE 34.2 mmol/L (21.0-32.0); POTASSIUM - SERUM 3.7 mmol/L (3.5-5.1)
--- NOTE | 2017-05-07 07:29 | NUR ---
RESTING QUIETLY IN BED CALL LIGHT IN REACH
[2017-05-07 08:14] VITALS: BP 149/53
--- NOTE | 2017-05-07 15:33 | NUR ---
PT RESTING IN BED WITH EYES OPEN CALL LIGHT IN REACH NO PROBLEMS WILL MONITER
--- NOTE | 2017-05-07 19:15 | NUR ---
PATIENT IN BED, RESTING QUIETLY IN PARTIAL RIGHT SIDELYING POSITION. NO DISTRESS NOTED. O2 er N/C @ 3.5L FLOW. BED ALARM IS ARMED. SR UP X3 WITH WATER AND CALL LIGHT IN REACH.
[2017-05-07 21:30] VITALS: BP 144/63
--- NOTE | 2017-05-07 21:30 | NUR ---
ASSESSMENT AND HS MEDS COMPLETE. DENIES FURTHER NEEDS.
--- NOTE | 2017-05-08 00:05 | NUR ---
IN BED, AWAKE. WAS ASSISTED UP TO BR @ 2315 TO URINATE.
--- NOTE | 2017-05-08 02:10 | NUR ---
ASSISTED PATIENT UP TO BR TO URINATE AND CHANGE POISE PAD DUE TO LARGE URINE INCONTINENCE WHILE ASLEEP.
--- NOTE | 2017-05-08 04:00 | NUR ---
IN BED, AWAKE, BUT DROWSY. RECENTLY HAD ME ADJUST HER HVAC TEMP TO COOLER SETTING.
--- NOTE | 2017-05-08 05:55 | NUR ---
PATIENT AWAKE. TOOK SCHEDULED PO PROTONIX. CLEANED ENCRUSTED MATTER FROM PATIENT'S EYELIDS. SAYS THEY HAVE BEEN BOTHERING HER MOST OF THE NIGHT. SHIFTED PATIENT'S CLOTHES FROM WASHER TO DRYER. TOLD HER THEY WILL BE DRY IN ABOUT AN HOUR. WANTS TO DRESS IN HER PJ'S FOR THERAPY.
--- NOTE | 2017-05-08 06:52 | NUR ---
RESTING IN BED QUIETLY. CALL LIGHT IN REACH
[2017-05-08 07:45] VITALS: BP 171/67
--- NOTE | 2017-05-08 07:54 | NUR ---
PATIENT RESTING WELL IN BED WHEN BREAKFAST TRAY BROUGHT INTO ROOM. ALERT/ORIENT TO SELF ONLY. BED ALARM ON. CALL LIGHT WITHIN REACH. OXYGEN AT 3.5L PER N/C. NO RESPITORY DISTRESS NOTED
--- NOTE | 2017-05-08 08:00 | NUR ---
PRN ZOFRAN GIVEN FOR NAUSEA.
--- NOTE | 2017-05-08 10:24 | NUR ---
PATIENT REFUSHING SHOWER. STATES SHE DOES NOT WANT TO GET, OR GET OUT OF BED TO TAKE A SHOWER. DENIES ANY NAUSEA AT THIS TIME, BUT HAS ALSO REFUSED BREAKFAST.
--- NOTE | 2017-05-08 13:01 | NUR ---
PATIENT HAS NO MORE C/O OF NAUSEA. ATE 30% OF LUNCH. STILL REFUSING SHOWER.
--- NOTE | 2017-05-08 13:47 | NUR ---
PHYSICAL THERAPIST IN PATIENTS ROOM. WORKIGN WITH PATIENT AT BEDSIDE
--- NOTE | 2017-05-08 19:30 | NUR ---
PT AWAKE, WATCHING TV.
[2017-05-08 19:53] VITALS: BP 183/73
[2017-05-08 19:56] VITALS: BP 194/67
--- NOTE | 2017-05-08 20:05 | NUR ---
PT STATES SHE HASN'T FELT VERY WELL, SHE THINKS THAT SHE CAN FEEL WHEN HER SBP IS ELEVATED. MEDICATED WITH CLONIDINE PER ORDER.
--- NOTE | 2017-05-08 21:20 | NUR ---
ASSISTED PT TO BATHROOM, PT STATED SHE WANTED TO SIT ON SIDE OF BED AND VISIT WITH ROOMMATE, PT HAS CALLLIGHT.
[2017-05-08 21:34] VITALS: BP 116/47
--- NOTE | 2017-05-08 22:00 | NUR ---
PT HAS FEET ON FLOOR, LEANING OVER INTO BED, EYES CLOSED, RESPIRATIONS REGULAR AND UNLABORED. ROOMMATE STATES SHE JUST FELL ASLEEP TALKING. ASSISTED PT TO BED IN SUPINE POSITION. NO S/S OF ACUTE DISTRESS.
--- NOTE | 2017-05-09 03:25 | NUR ---
PT RESTING QUIETLY, NO S/S OF ACUTE DISTRESS.
[2017-05-09 07:53] VITALS: BP 156/70
--- NOTE | 2017-05-09 08:40 | NUR ---
PT AM MEDS ADMINISTERED. PT DENIES NEEDS. WCTM.
--- NOTE | 2017-05-09 12:15 | NUR ---
PT UP EATING LUNCH, DENIES NEEDS. WCTM.
--- NOTE | 2017-05-09 18:28 | NUR ---
PT UP TALKING ON THE PHONE. PT DENIES NEEDS. WCTM.
--- NOTE | 2017-05-09 19:50 | NUR ---
PT. IN BED WITH HOB UP FOR COMFORT AND IS WATCHING TV. NO VOICED NEEDS AT THIS TIME. ASSESSMENT COMPLETED. CALL LIGHT WITHIN REACH.
[2017-05-09 20:57] VITALS: BP 143/50
--- NOTE | 2017-05-09 23:13 | NUR ---
PT. IN BED WITH HOB UP FOR COMFORT WITH EYES CLOSED AND RESP. EVEN. O2 ON AT 2L/MIN WITHOUT ANY S/S DISTRESS. CALL LIGHT WITHIN REACH.
--- NOTE | 2017-05-10 03:02 | NUR ---
PT. IN BED WITH HOB UP FOR COMFORT. EYES ARE CLOSED BUT PT. IS TALKING OUT LOUD TO HERSELF. O2 ON AT 2L/MIN VIA N/C WITHOUT ANY S/S DISTRESS OBSERVED. CALL LIGHT WITHIN REACH.
[2017-05-10 06:54] LABS: BASOPHILS 0.1 % (0-2); EOSINOPHILS 1.5 % (0-7); HEMATOCRIT 34.3 % (36.0-48.0); HEMOGLOBIN 11.4 g/dL (12-16); IMMATURE GRANULOCYTES 0.1 % (0-5); LYMPHOCYTES 13.6 % (15-50); MCH 31.3 pg (26.0-34.0); MCHC 33.2 g/dL (31.0-37.0); MCV 94.2 fL (80.0-100.0); MONOCYTES 14.5 % (2-11); NEUTROPHILS 70.2 % (40-80); RBC 3.64 10x6/uL (4.00-5.40); RDW 12.8 % (11.5-14.5); WBC 8.1 10x3/uL (4.8-10.8)
[2017-05-10 06:57] LABS: PLATELET COUNT 263 10x3/uL (130-400)
[2017-05-10 07:21] LABS: ANION GAP 13.9 mmol/L (8-16); CALCIUM 9.2 mg/dL (8.5-10.1); CARBON DIOXIDE 30.9 mmol/L (21.0-32.0); CREATININE - SERUM 1.2 mg/dL (0.6-1.3); POTASSIUM - SERUM 3.8 mmol/L (3.5-5.1)
--- NOTE | 2017-05-10 07:30 | NUR ---
PT IS RESTING IN BED WITH EYES OPEN. ALERT AND ORIENTED X 3. DENIES PAIN OR DISCOMFORT AT THIS TIME. PT IS VERY CHATT[place]. O2 IS ON @ 2LPM PER NC. SHE IS VERY BLACKFEET. SR'S ARE UP X 3 IN BED. CALL LIGHT AND BEDSIDE TABLE ARE WITHIN EASY REACH.
[2017-05-10 08:00] VITALS: BP 134/61
--- NOTE | 2017-05-10 09:33 | NUR ---
PT IS RESTING IN BED AWAITING THERAPY. NO ACUTE DISTESS NOTED.
--- NOTE | 2017-05-10 12:12 | NUR ---
PATIENT DISCHARGING HOME TODAY. [facility] WILL FOLLOW WITH PATIENT AT HOME. NO NEW DME NEEDED AT THIS TIME. DR. ROBLERO 06/08/17 @ 1:50, DR. MCGOWAN OFFICE WILL CALL AND SPEAK WITH DAUGHTER REGARDING AN APPOINTMENT. ORDERS HAVE BEEN FAXED WITH CONFORMATION REIEVED. PATIENT CHOICE FORM FOR HOME HEALTH AND [facility] FORM SIGNED, EXPLAINED AND FILED IN CHART.
--- NOTE | 2017-05-10 12:45 | NUR ---
READY FOR DISCHARGE HOME.CL IN REACH.
--- NOTE | 2017-05-10 13:20 | NUR ---
PT DISCHARGED TO HOME. DEPARTED UNIT VIA WC WITH ALL BELONGINGS. DEPARTED GROUNDS VIA POV DRIVEN BY HER DAUGHTER.
== END 2017-05-10 13:22 | disposition home health service (06) | DRG 949 ==
LOC: D.REHAB 16:44
PROVIDERS: ADMIT Emergency Medicine
DX: S09.8XXD Other specified injuries of head, subsequent encounter (principal); E87.1 Hypo-osmolality and hyponatremia; W19.XXXD Unspecified fall, subsequent encounter; S06.0X0D Concussion without loss of consciousness, subsequent encounter; R42 Dizziness and giddiness; R06.02 Shortness of breath; I10 Essential (primary) hypertension; I95.9 Hypotension, unspecified; R09.02 Hypoxemia; E87.70 Fluid overload, unspecified; D64.9 Anemia, unspecified; I48.91 Unspecified atrial fibrillation; I20.9 Angina pectoris, unspecified; J44.9 Chronic obstructive pulmonary disease, unspecified; F41.8 Other specified anxiety disorders; I73.9 Peripheral vascular disease, unspecified; E87.6 Hypokalemia

== ENCOUNTER 2017-06-06 23:56 | Emergency (ER) | payer MEDICARE, BC ==
[2017-04-28 10:22] VITALS: BMI 19.6
[2017-06-07] MEDS ORDERED: LUNESTA3 MG PO (18:36)
[2017-06-07] MEDS ORDERED: NORVASC5 MG PO (18:38)
== END 2017-06-07 02:24 | disposition home or self-care (01) ==
LOC: D.ER 23:56
DX: S70.01XA Contusion of right hip, initial encounter (principal); X58.XXXA Exposure to other specified factors, initial encounter; Y93.89 Activity, other specified; Y92.89 Other specified places as the place of occurrence of the external cause; I48.2 Chronic atrial fibrillation; I50.9 Heart failure, unspecified; J44.9 Chronic obstructive pulmonary disease, unspecified; I10 Essential (primary) hypertension; F41.9 Anxiety disorder, unspecified; K21.9 Gastro-esophageal reflux disease without esophagitis; J45.909 Unspecified asthma, uncomplicated; F32.9 Major depressive disorder, single episode, unspecified; F03.90 Unspecified dementia, unspecified severity, without behavioral disturbance, psychotic disturbance, mood disturbance, and anxiety

== ENCOUNTER 2017-06-07 14:28 | Inpatient (IN) | payer MEDICARE, BC ==
[~2017-06-07] VITALS: Ht 165.1 cm; Wt 56.2 kg
[2017-06-07 16:08] LABS: BASOPHILS 0.1 % (0-2); EOSINOPHILS 0.5 % (0-7); HEMATOCRIT 35.9 % (36.0-48.0); IMMATURE GRANULOCYTES 0.1 % (0-5); LYMPHOCYTES 5.2 % (15-50); MCH 31.2 pg (26.0-34.0); MCHC 33.4 g/dL (31.0-37.0); MCV 93.2 fL (80.0-100.0); MEAN PLATELET VOLUME 10.2 fL (7.4-10.4); MONOCYTES 9.9 % (2-11); NEUTROPHILS 84.2 % (40-80); RBC 3.85 10x6/uL (4.00-5.40); RDW 13.3 % (11.5-14.5); WBC 8.7 10x3/uL (4.8-10.8)
[2017-06-07 16:14] LABS: PLATELET COUNT 175 10x3/uL (130-400)
[2017-06-07 16:18] LABS: APTT 25.8 SECONDS (22.8-39.4); INR 1.02 (0.85-1.17); PROTIME 13.3 SECONDS (11.6-15.0)
[2017-06-07 16:31] LABS: ALBUMIN 3.5 g/dL (3.4-5.0); ANION GAP 10.5 mmol/L (8-16); BILIRUBIN - TOTAL 0.8 mg/dL (0.2-1.3); CARBON DIOXIDE 35.8 mmol/L (21.0-32.0); CREATININE - SERUM 1.1 mg/dL (0.6-1.3); POTASSIUM - SERUM 3.3 mmol/L (3.5-5.1); PROTEIN - SERUM 6.8 g/dL (6.4-8.2)
[2017-06-07 16:33] LABS: APPEARANCE CLEAR (CLEAR); BILIRUBIN NEGATIVE (NEGATIVE); COLOR YELLOW (YELLOW); GLUCOSE NEGATIVE (NEGATIVE); KETONE NEGATIVE (NEGATIVE); LEUKOCYTE ESTERASE NEGATIVE (NEGATIVE); NITRITE NEGATIVE (NEGATIVE); PROTEIN TRACE mg/dL (NEGATIVE); UROBILINOGEN NORMAL (NORMAL)
[2017-06-07] MEDS ORDERED: LUNESTA3 MG PO (18:36)
[2017-06-07] MEDS ORDERED: NORVASC5 MG PO (18:38)
[2017-06-07 18:43] VITALS: BP 145/68; BMI 20.6
[2017-06-07 20:00] VITALS: BP 153/61
--- NOTE | 2017-06-07 23:32 | NUR ---
SPOKE WITH OWEN FROM DR. VIDES'S OFFICE IN REGARDS TO BUCKS TRACTION. OWEN EXPLAINED THAT IF THE PT DOES NOT APPEAR TO BE IN A LOT OF PAIN THAT WE CAN HOLD OFF ON THE BUCKS TRACTION, HOWEVER, IF THE PT'S PAIN DOES INCREASE WE CAN PUT THE BUCKS TRACTION ON TO RELEASE THE PRESSURE OFF OF THE FX.
[2017-06-08] VITALS: BP 181/69
[2017-06-08 04:03] VITALS: BP 167/56
--- NOTE | 2017-06-08 07:40 | NUR ---
PATIENT RESTING IN THE BED. PATIENT'S FAMILY AT THE BEDSIDE. PATIENT IS VERY [place]. PATIENT IS NPO. DENIES NEEDS AT PRESENT TIME. CALL LIGHT IN PATIENT'S REACH. WILL MONITOR.
[2017-06-08 08:33] VITALS: BP 151/50
[2017-06-08 11:08] LABS: BASOPHILS 0.2 % (0-2); EOSINOPHILS 3.5 % (0-7); HEMATOCRIT 33.5 % (36.0-48.0); HEMOGLOBIN 11.1 g/dL (12-16); IMMATURE GRANULOCYTES 0.2 % (0-5); LYMPHOCYTES 11.3 % (15-50); MCHC 33.1 g/dL (31.0-37.0); MCV 93.6 fL (80.0-100.0); MEAN PLATELET VOLUME 9.7 fL (7.4-10.4); MONOCYTES 12.2 % (2-11); NEUTROPHILS 72.6 % (40-80); RBC 3.58 10x6/uL (4.00-5.40); RDW 13.3 % (11.5-14.5); WBC 6.6 10x3/uL (4.8-10.8)
[2017-06-08 11:10] LABS: PLATELET COUNT 137 10x3/uL (130-400)
[2017-06-08 11:26] LABS: ANION GAP 8.9 mmol/L (8-16); BILIRUBIN - TOTAL 0.7 mg/dL (0.2-1.3); CARBON DIOXIDE 37.2 mmol/L (21.0-32.0); POTASSIUM - SERUM 3.1 mmol/L (3.5-5.1); PROTEIN - SERUM 6.6 g/dL (6.4-8.2)
[2017-06-08 13:00] VITALS: BP 136/61
[2017-06-08 13:51] VITALS: Ht 165.1 cm; Wt 56.2 kg
--- NOTE | 2017-06-08 15:15 | NUR ---
PATIENT SIGNED CONSENT TO HAVE A GAMMA NAIL RIGHT HIP THIS AFTERNOON. FAMILY IN ROOM WITH PATIENT.
[2017-06-08 16:14] VITALS: BP 132/49
--- NOTE | 2017-06-08 20:22 | NUR ---
BRUISING NOTED ON ARMS, LEFT LOWER LEG WITH SOME ULCERATION AREA NOTED, POSITIONED ON FRACTURE TABLE WITH DR VIDES AND OR CREW ALL AREAS PADDED AND SAFETY MEASURES TAKEN, NO IMPINGEMENTS, TWORLEY.
--- NOTE | 2017-06-08 21:27 | NUR ---
ANESTHESIA CONSULTED ABOUT PTS O2 SAT AND ORDERED XOPENEX UPDRAFT
--- NOTE | 2017-06-08 21:37 | NUR ---
DR GAMEZ CONSULTED ABOUT BP AND O2 SAT AT 2130
[2017-06-08 21:53] VITALS: BP 155/79
--- NOTE | 2017-06-08 22:08 | NUR ---
RECIVED FROM ER ALERT,ORIENTED. SPO2 AT 94 % 3L PER NC. FAMILY AT BEDSIDE
--- NOTE | 2017-06-09 00:58 | NUR ---
AWAKE WITH CONFUSION NOTED. DRSG TO RIGHT HIP INTACT WITHOUT DRAINAGE NOTED. IV INFUSIONG TO RIGHT ARM. CL IN REACH. FAMILY AT BEDSIDE.
--- NOTE | 2017-06-09 02:00 | NUR ---
PT IN BED CONFUSED AT THIS TIME. NOT ABLE TO REORIENT. FAMILY AT BEDSIDE. SIDE RAILS X 2. BED IS LOW. CALL LIGHT IN REACH.
[2017-06-09 03:47] VITALS: BP 149/66
--- NOTE | 2017-06-09 05:24 | NUR ---
AROUSES EASILY TO VERBAL STIMULI. ORIENTED TO NAME ONLY. CL IN REACH. FAMILY REMAINS AT BEDSIDE.
[2017-06-09 06:27] LABS: BASOPHILS 0.2 % (0-2); EOSINOPHILS 0.9 % (0-7); HEMATOCRIT 29.9 % (36.0-48.0); HEMOGLOBIN 9.8 g/dL (12-16); IMMATURE GRANULOCYTES 0.3 % (0-5); LYMPHOCYTES 11.6 % (15-50); MCH 30.8 pg (26.0-34.0); MCHC 32.8 g/dL (31.0-37.0); MEAN PLATELET VOLUME 10.1 fL (7.4-10.4); PLATELET COUNT 142 10x3/uL (130-400); RBC 3.18 10x6/uL (4.00-5.40); RDW 13.4 % (11.5-14.5); WBC 6.6 10x3/uL (4.8-10.8)
[2017-06-09 06:46] LABS: ALBUMIN 2.7 g/dL (3.4-5.0); BILIRUBIN - TOTAL 0.8 mg/dL (0.2-1.3); CALCIUM 8.3 mg/dL (8.5-10.1); CARBON DIOXIDE 34.5 mmol/L (21.0-32.0); PROTEIN - SERUM 5.8 g/dL (6.4-8.2)
[2017-06-09 06:49] LABS: ANION GAP 9.5 mmol/L (8-16)
--- NOTE | 2017-06-09 07:30 | NUR ---
PATIENT RECEIVED IN LOW LIU POSITION RESTING QUIETLY. NO SIGNS OF DISTRESS NOTED. FAMILY AT BEDSIDE. SIDE RAILS UP X2. BED IN LOW POSITION. CALL LIGHT IN REACH. BHAVIN ALARM ON.
[2017-06-09 08:29] VITALS: BP 175/61
--- NOTE | 2017-06-09 09:28 | NUR ---
PATIENT ALERT IN HIGH LIU POSITION. NO SIGNS OF DISTRESS NOTED. REPOSITIONED IN BED. SCHEDULED MEDICATION ADMINISTERED WELL PRN [place]. DENIES NEEDS. FAMILY PRESENT. SIDE RAILS UP X2. BED IN LOW POSITION. CALL LIGHT IN REACH. BED ALARM ON.
--- NOTE | 2017-06-09 12:25 | NUR ---
PATIENT SITTING UP IN CHAIR ALERT. NO SIGNS OF DISTRESS NOTED. INCENTIVE SPIROMETER AND TEACHING ON USE PROVIDED. DEMONSTRATES CORRECT USE. NO NEEDS VOICED. CALL LIGHT IN REACH.
[2017-06-09 13:06] VITALS: BP 131/48
--- NOTE | 2017-06-09 15:21 | NUR ---
Patient Name: REBEL HASSAN Admission Status: ER Accout number: [id number] Admission Date: 06-07-2017 : 1927 Admission Diagnosis:DISPLACED INTERTROCHANTERIC FRACTURE OF RIGHT FEMUR, IN Attending: RADHA Current LOS: 2 Anticipated DC Date: 06-10-2017 Planned Disposition: Snf Facility Primary Insurance: MEDICARE A & B Discharge Planning Comments: CM MET WITH PATIENTS DAUGHTER (DILEEP) REGARDING D/C NEEDS AND PLANS. PATIENT LIVES AT [facility]. PATIENT HAS A WALKER, WHEELCHAIR, AND RAISED TOILET SEAT AT HOME. PATIENT ALSO HAS OXYGEN AT HOME AND IS ON 3L (PROVIDED BY [facility]). PATIENTS PCP IS DR. YATES AND PHARMACY IS [facility]. PATIENT HAS A REFERRAL TO [facility]-DAUGHTER SIGNED SANDI FORM. CM WILL CONTINUE TO FOLLOW PATIENT WITH D/C NEEDS AND PLANS. PCP DR. TRUDY [facility]- [phone] DONALD (DAUGHTER) [phone] Telephone Clerk Telegraph Office: Cuca Dennison How many steps to enter\exit or inside your home? 0 0 * PCP DR. YATES 0 * Pharmacy [facility] 0 * Preadmission Environment Assisted Living 0 * Facility Name [facility] 0 * ADLs Partial Dependent 0 * Partial ADLs (Assistance needed) Ambulation Bathing Dressing Medication Management Toileting Transfers 0 * Equipment Elevated [place] Seat Walker Wheelchair 0 * List name and contact numbers for known caregivers / representatives who currently or will assist patient after discharge: DONALD (DAUGHTER) [phone] 0 * Community resources currently utilized Assisted Living 0 * Please name any agencies selected above. [facility] 0 * Additional services required to return to the preadmission environment? Yes 0 * Can the patient safely return to the preadmission environment? Yes 0 * Has this patient been hospitalized within the prior 30 days at any hospital? No 0 Grand Total: 0
--- NOTE | 2017-06-09 15:25 | NUR ---
PATIENT IN MID LIU POSITION RESTING WITH EYES CLOSED. RESPIRATIONS EVEN AND UNLABORED. FAMILY PRESENT. SIDE RAILS UP X2. BED IN LOW POSITION. CALL LIGHT IN REACH. BHAVIN ALARM ON.
[2017-06-09 16:29] VITALS: BP 145/50
--- NOTE | 2017-06-09 16:43 | NUR ---
PATIENT ALERT IN BED WITH FAMILY PRESENT. NO SIGNS OF DISTRESS NOTED. SCHEDULED IV ABX INITIATED. DENIES NEEDS. SIDE RAILS UP X2. BED IN LOW POSITION. CALL LIGHT IN REACH. BHAVIN ALARM ON.
[2017-06-09 20:00] VITALS: BP 149/49
[2017-06-10] VITALS (7 sets, daily range): BP systolic 120–150; BP diastolic 40–65
[2017-06-10 05:54] LABS: BASOPHILS 0.1 % (0-2); EOSINOPHILS 1.2 % (0-7); HEMOGLOBIN 9.7 g/dL (12-16); IMMATURE GRANULOCYTES 0.1 % (0-5); MCH 31.4 pg (26.0-34.0); MCHC 33.4 g/dL (31.0-37.0); MCV 93.9 fL (80.0-100.0); MEAN PLATELET VOLUME 10.5 fL (7.4-10.4); MONOCYTES 12.8 % (2-11); NEUTROPHILS 75.8 % (40-80); PLATELET COUNT 158 10x3/uL (130-400); RBC 3.09 10x6/uL (4.00-5.40); RDW 13.2 % (11.5-14.5); WBC 6.8 10x3/uL (4.8-10.8)
[2017-06-10 06:23] LABS: ALBUMIN 2.7 g/dL (3.4-5.0); ANION GAP 11.7 mmol/L (8-16); BILIRUBIN - TOTAL 0.78 mg/dL (0.2-1.3); CALCIUM 8.9 mg/dL (8.5-10.1); CARBON DIOXIDE 30.6 mmol/L (21.0-32.0); CREATININE - SERUM 1.1 mg/dL (0.6-1.3); POTASSIUM - SERUM 3.3 mmol/L (3.5-5.1); PROTEIN - SERUM 6.4 g/dL (6.4-8.2)
--- NOTE | 2017-06-10 07:35 | NUR ---
PATIENT RECEIVED IN LOW LIU POSITION RESTING WITH EYES CLOSED. RESPIRATIONS EVEN AND UNLABORED. SIDE RAILS UP X2. BED IN LOW POSITION. CALL LIGHT IN REACH. BHAVIN ALARM ON.
[2017-06-10] MEDS ORDERED: HYDROCODON-ACE1 EAC7 PO (08:05)
--- NOTE | 2017-06-10 09:38 | NUR ---
PATIENT REPOSITIONED IN BED WITH ASSIST FROM PHYSICAL THERAPY. WELL TOLERATED. SCHEDULED MEDICATION ADMINISTERED. SIDE RAILS UP X3. BED IN LOW POSITION. CALL LIGHT IN REACH. BHAVIN ALARM ON.
--- NOTE | 2017-06-10 11:48 | NUR ---
PATIENT IN MID LIU POSITION RESTING WITH EYES CLOSED. RESPIRATIONS EVEN AND UNLABORED. IV ABX INITIATED PER ORDER. IV TO LEFT FOREARM PATENT. FLUSHES EASY WITHOUT REDNESS OR INFLAMMATION NOTED TO SITE. FAMILY PRESENT. SIDE RAILS UP X3. BED IN LOW POSITION. CALL LIGHT IN REACH. BHAVIN ALARM ON.
--- NOTE | 2017-06-10 13:32 | NUR ---
Nutrition Follow Up: Per chart pt with some confusion and disorientation at times. Noted pt to transfer to Rehab tomorrow. Pt is eating ~5% meal avg on a regular diet. Wt stable. No BM since admit. Labs reviewed. Meds noted including Remeron, Lasix. Rec continue current diet. Will continue to provide selective menus and honor food preferences. RD following.
--- NOTE | 2017-06-10 15:09 | NUR ---
PATIENT IN LOW LIU POSITION RESTING WITH EYES CLOSED. RESPIRATIONS EVEN AND UNLABORED. WAKES EASY. SCHEDULED MEDICATION ADMINISTERED. SIDE RAILS UP X3. BED IN LOW POSITION. CALL LIGHT IN REACH. BHAVIN ALARM ON. FAMILY AT BEDSIDE.
--- NOTE | 2017-06-10 17:00 | NUR ---
PATIENT ALERT IN BED WITH FAMILY PRESENT. NO SIGNS OF DISTRESS NOTED. SIDE RAILS UP X3. BED IN LOW POSITION. CALL LIGHT IN REACH. BHAVIN ALARM ON.
--- NOTE | 2017-06-10 19:40 | NUR ---
PATIENT RESTING IN BED WITH FAMILY AT BEDSIDE. SPOKE WITH FAMILY ABOUT PT'S AGITATION THE PREVIOUS NIGHT. DISCUSSED CALLING THE FAMILY IF THE PATIENT BECOMES INCREASINGLY AGITATED TONIGHT. BED IN LOWEST POSITION, CALL LIGHT WITHIN REACH, AND BHAVIN ALARM ON. ENCOURAGED THE PATIENT AND FAMILY TO CALL IF THEY HAVE NEEDS.
[2017-06-11] VITALS: BP 106/58
[2017-06-11 04:00] VITALS: BP 112/70
[2017-06-11 05:29] LABS: ALBUMIN 2.8 g/dL (3.4-5.0); BILIRUBIN - TOTAL 0.82 mg/dL (0.2-1.3); CALCIUM 8.7 mg/dL (8.5-10.1); CARBON DIOXIDE 33.8 mmol/L (21.0-32.0); CREATININE - SERUM 0.9 mg/dL (0.6-1.3); PROTEIN - SERUM 6.1 g/dL (6.4-8.2)
[2017-06-11 05:30] LABS: ANION GAP 9.1 mmol/L (8-16); POTASSIUM - SERUM 2.9 mmol/L (3.5-5.1)
[2017-06-11 05:37] LABS: HEMATOCRIT 29.4 % (36.0-48.0); HEMOGLOBIN 9.9 g/dL (12-16); LYMPHOCYTES 15.5 % (15-50); MCH 31.4 pg (26.0-34.0); MCHC 33.7 g/dL (31.0-37.0); MCV 93.3 fL (80.0-100.0); MEAN PLATELET VOLUME 9.6 fL (7.4-10.4); NEUTROPHILS 70.3 % (40-80); PLATELET COUNT 161 10x3/uL (130-400); RBC 3.15 10x6/uL (4.00-5.40); RDW 13.1 % (11.5-14.5); WBC 5.9 10x3/uL (4.8-10.8)
--- NOTE | 2017-06-11 07:15 | NUR ---
REPORT RECIEVED ASSUMED CARE. PATIENT IN BED WITH IV INTACT. NO COMPLAINTS AT THIS TIME. CALL LIGHT WITHIN REACH.
[2017-06-11 08:32] VITALS: BP 143/52
[2017-06-11] MEDS ORDERED: LEVAQUIN500 MG PO (09:17)
[2017-06-11] MEDS ORDERED: REMERON15 MG PO (09:17)
[2017-06-11] MEDS ORDERED: ELIQUIS2.5 MG PO (09:17)
--- NOTE | 2017-06-11 09:54 | NUR ---
CM REASSESSMENT NOTE: PATIENT IS DISCHARGING TO [facility] TODAY BY FACILITY VAN TO A SKILLED BED. FAMILY AT BEDSIDE AND ARE AWARE OF DISCHARGE. IMM SERVED
--- NOTE | 2017-06-11 11:00 | NUR ---
PATIENT IV AND RUELAS REMOVED AT THIS TIME. TOLERATED WITH NO PAIN. IV CATH TIP INTACT. FAMILY AT BEDSIDE. DISCHARGE INSTRUCTIONS GIVEN TO DAUGHTER. AWAITING OPERATIONS LEAD FROM R. CALL LIGHT WITHIN REACH.
[2017-06-11 12:38] VITALS: BP 118/56
== END 2017-06-11 14:16 | DRG 481 ==
LOC: D.ER 14:28 → D.MS 16:06
PROVIDERS: Emergency Medicine; Family Medicine; Physician Assistant; ADMIT Orthopaedic Surgery
PROC: 0QHB36Z Insertion of Intramedullary Internal Fixation Device into Right Lower Femur, Percutaneous Approach (ICD-10-PCS; principal; 2017-06-07)
DX: S72.141A Displaced intertrochanteric fracture of right femur, initial encounter for closed fracture (principal); E87.1 Hypo-osmolality and hyponatremia; D62 Acute posthemorrhagic anemia; W19.XXXA Unspecified fall, initial encounter; S06.0X0A Concussion without loss of consciousness, initial encounter; I12.9 Hypertensive chronic kidney disease with stage 1 through stage 4 chronic kidney disease, or unspecified chronic kidney disease; N18.3 Chronic kidney disease, stage 3 (moderate); K21.9 Gastro-esophageal reflux disease without esophagitis; J44.9 Chronic obstructive pulmonary disease, unspecified; I48.91 Unspecified atrial fibrillation; E87.6 Hypokalemia; F41.8 Other specified anxiety disorders; R41.0 Disorientation, unspecified; T50.905A Adverse effect of unspecified drugs, medicaments and biological substances, initial encounter; Y92.230 Patient room in hospital as the place of occurrence of the external cause